=== PATIENT | female | born 1950 | race Caucasian/White ===

== ENCOUNTER 2019-05-30 13:17 | Inpatient (IN) | payer OTHER ==
[2019-05-29 23:00] VITALS: BP_SYST 109
[~2019-05-30] VITALS: Ht 160 cm; Wt 65.8 kg
[2019-05-30] MEDS ORDERED: NACL 0.9% 1,000 ML IV ONE (13:30)
[2019-05-30] MEDS ORDERED: ONDANSETRON HCL 4 MG/2 ML VIAL IVP ONE ×2 (13:30→13:45)
[2019-05-30] MEDS ORDERED: KETOROLAC TROMETHAMINE 30 MG VIAL IVP ONE (13:30)
[2019-05-30 13:33] VITALS: BP_SYST 161
[2019-05-30] MEDS ORDERED: LORazepam 2 MG/ML VIAL IVP ONE (13:45)
[2019-05-30] MEDS ORDERED: PANTOPRAZOLE SODIUM 40 MG/VIAL (PROTONIX) IVP ONE (13:45)
[2019-05-30 13:55] LABS: BASOPHILS % (AUTO) 0.1 % (0.0-2.0); LYMPHOCYTES # (AUTO) 1.1 K/uL (1.0-5.5); LYMPHOCYTES % (AUTO) 9.4 % (20.5-51.5); MEAN CORPUSCULAR HEMOGLOBIN 30 pg (27-31); MEAN CORPUSCULAR HGB CONC 34 % (32-36); MEAN CORPUSCULAR VOLUME 89 fL (79.0-98.0); MONOCYTES % (AUTO) 7.9 % (1.7-9.3); NEUTROPHILS % (AUTO) 82.6 % (40.0-70.0); PLATELET COUNT (AUTO) 307 K/uL (130-430); RED BLOOD CELL COUNT(AUTO) 4.29 MIL/uL (4.2-6.2); RED CELL DISTRIBUTION WIDTH 13.6 % (9.0-15.0); WHITE BLOOD COUNT (AUTO) 12.1 K/uL (4.8-10.8)
[2019-05-30 14:11] LABS: CALCIUM 9.3 mg/dL (8.4-11.0); CREATININE 2.57 mg/dL (0.55-1.30); POTASSIUM 3.5 mmol/L (3.5-5.1); TOTAL BILIRUBIN 0.7 mg/dL (0.0-1.0)
[2019-05-30 14:12] LABS: ALBUMIN 4.4 g/dL (3.4-4.8)
[2019-05-30] MEDS ORDERED: MORPHINE 2 MG/ML INJ. SYRINGE IVP ONE (14:45)
--- NOTE | 2019-05-30 15:10 | NUR ---
Patient to ER bed 6 to gown for evaluation. Side rails up.
--- NOTE | 2019-05-30 15:20 | NUR ---
Patient BIB Care/BLS for vomiting. Patient aresident of [facility], sent by Dr. Varner for nause and voming x3 days. Patient was seen at [facility] ER yesterday for nausea & vomiting, discharge with zofran & ABX. Patient continues to have nausea with vomiting and not tolerating PO intake. Daughter of patient at bedside states last PO intake was Thursday.
--- NOTE | 2019-05-30 15:25 | NUR ---
ER Dr. Rosales at bedside examining patient.
[2019-05-30] MEDS ORDERED: PANTOPRAZOLE SODIUM 40 MG/VIAL (PROTONIX) ONE (15:50)
--- NOTE | 2019-05-30 17:15 | NUR ---
# 14 FR In and Out catheter with use of sterile technique. Immediate return of 30 ml yellow urine noted. Urine sample collected and sent to lab. Pt tolerated procedure . Patient unable to toilet self.
[2019-05-30 17:22] LABS: BILIRUBIN,URINE 1+ (NEGATIVE); BLOOD, URINE 2+ (NEGATIVE); CLARITY/URINE SL CLOUDY (CLEAR); COLOR,URINE YELLOW (YELLOW); GLUCOSE,URINE 2+ (NEGATIVE); KETONES,URINE TRACE (NEGATIVE); LEUKOCYTE ESTERASE ,URINE NEGATIVE (NEGATIVE); NITRITE, URINE NEGATIVE (NEGATIVE); PH,URINE 5.5 (5.0-8.0); PROTEIN URINE 3+ (NEGATIVE); UROBILINOGEN,URINE 0.2 (0.2-1.0)
--- NOTE | 2019-05-30 17:45 | NUR ---
ER Dr. Rosales at bedside discussing results with patient & daughter of PT.
[2019-05-30 17:46] LABS: BACTERIA,URINE FEW /HPF (None Seen)
[2019-05-30 17:47] LABS: COARSE GRANULAR CASTS,URINE 0-10 /LPF (None Seen); FINE GRANULAR CASTS,URINE 0-10 /LPF (None Seen); MUCUS,URINE None Seen /LPF (None Seen); OTHER CASTS, URINE WBC CASTS 1+ /LPF (None Seen); URINE AMORPHOUS URATE 3+ /HPF (None Seen)
[2019-05-30] MEDS ORDERED: LEVOFLOXACIN 500 MG/D5W 100 ML IV ONE (18:00)
--- NOTE | 2019-05-30 18:11 | NUR ---
Dr. Rosales ordered abx and blood cx
--- NOTE | 2019-05-30 19:16 | NUR ---
Report recieved from TRISTAN Ramirez. States that med rec is currently unavail from staff at facility. Waiting for information to be provided Per TRISTAN Ramirez.
--- NOTE | 2019-05-30 19:16 | NUR ---
Report Given to Manolo HUDSON
[2019-05-30] MEDS ORDERED: NS 500 ML IV ONE (19:30)
--- NOTE | 2019-05-30 20:31 | NUR ---
Transfer to M/S via ACLS protocol. Licensed nurse present. IV present no signs or symptoms of infiltration.
--- NOTE | 2019-05-30 20:31 | NUR ---
Patient will be admitted to care of . Admitted to M/S unit. Will go to room 121C. Belongings list completed. Complete and up to date summary report printed. SBAR report to be given at bedside with opportunity for questions.
--- NOTE | 2019-05-30 21:17 | NUR ---
ADMISSION: The patient, JOHN JAMES, 69 y/o, F admitted by , was given written information regarding hospital policies, unit procedures and contact persons. Valuables were checked and pt was oriented to her room and surrounding.
--- NOTE | 2019-05-30 22:25 | NUR ---
Pt yelling and requesting pain medication for 9/10 abdominal pain. Pt also restless and attempting to get out of bed. Pt informed MD would be paged for pain medication order.
--- NOTE | 2019-05-30 22:28 | NUR ---
Paged Francesco Aguirre s/w Kamila
[2019-05-30] MEDS ORDERED: KCL 20 mEq in NS 1000 mL 1,000 ML IV ONE (22:30)
[2019-05-30 23:00] VITALS: BP_SYST 109
[2019-05-30] MEDS: ONDANSETRON HCL 4 MG/2 ML VIAL IVP PRN (23:32)
[2019-05-30] MEDS: MORPHINE 2 MG/ML INJ. SYRINGE IVP PRN (23:34)
--- NOTE | 2019-05-30 23:34 | NUR ---
Morphine 2mg and Zofran 4mg given IV for c/o abdominal pain and nausea respectively. IVF is infusing well in [facility]. Call light is with pt and bed alarm is on. Pt's room is across from the Nurses' Station.
[2019-05-30] MEDS: D5/0.45 NS 1,000 ML IV SCH (23:36)
[2019-05-31] MEDS ORDERED: GLUCOSE 15 GM GEL (in 37.5 GM TUBE) PO PRN
[2019-05-31] MEDS ORDERED: DEXTROSE 50% JECT 50 ML DISP.SYRIN IVP PRN
[2019-05-31] MEDS ORDERED: FLU VACC TS2019(65UP)/MF59C/PF 45 MCG/0.5 ML SYRINGE I.M. PRN (00:30)
[2019-05-31] MEDS: LORazepam 2 MG/ML VIAL IVP PRN ×3 (00:44→20:45)
--- NOTE | 2019-05-31 00:44 | NUR ---
Ativan 0.5mg was given IV for anxiety. Fall and safety precautions are in place.
--- NOTE | 2019-05-31 02:00 | NUR ---
Sleeping comfortably in bed. fall and safety precautions are in place. IVF is infusing well in [facility].
--- NOTE | 2019-05-31 02:49 | NUR ---
Consultation Paged Reason for the Consultation: Complicated UTI Was consult called: Y Person who was notified: Cat Consulting Physician: Dr. Johns Warp Tying Machine Tender Ordering Physician: Francesco Aguirre
--- NOTE | 2019-05-31 02:57 | NUR ---
Consultation Paged Reason for the Consultation: Abd Pain Was consult called: Y Person who was notified: Cat Consulting Physician: Dr. Michael (Dr. Brown is operations vice president) [employer] Teacher Ordering Physician: Francesco Aguirre
--- NOTE | 2019-05-31 02:59 | NUR ---
Consultation Paged Reason for the Consultation: Psych disorder Was consult called: Y Person who was notified: Cat Consulting Physician: Dr. Florence Hematologist Ordering Physician: Francesco Aguirre Face Sheet was faxed to [phone]
[2019-05-31] MEDS ORDERED: KCL 20 mEq in NS 1000 mL 1,000 ML IV ONE (03:57)
--- NOTE | 2019-05-31 04:00 | NUR ---
Not in any distress at this time. IVF is infusing well in [facility]. Call light is with pt and bed alarm is on.
[2019-05-31 06:30] LABS: ALBUMIN 3.8 g/dL (3.4-4.8); CALCIUM 8.4 mg/dL (8.4-11.0); CREATININE 2.06 mg/dL (0.55-1.30); TOTAL BILIRUBIN 0.5 mg/dL (0.0-1.0)
[2019-05-31] MEDS: INSULIN LISPRO SLIDING SCALE 100 UNITS/ML VIAL (humaLOG) SUBCUT PRN ×4 (06:35→21:20)
--- NOTE | 2019-05-31 06:35 | NUR ---
Accucheck 194 and 2 units Humalog Insulin was given SQ. Skin remains warm and dry to touch. IVF is infusing well in [facility]. All pt's needs were attended to. Will endorse to day shift nurse.
[2019-05-31 06:41] LABS: BASOPHILS % (AUTO) 0.1 % (0.0-2.0); HEMATOCRIT 35.5 % (36-48); LYMPHOCYTES # (AUTO) 1.3 K/uL (1.0-5.5); LYMPHOCYTES % (AUTO) 11.3 % (20.5-51.5); MEAN CORPUSCULAR HEMOGLOBIN 30 pg (27-31); MEAN CORPUSCULAR HGB CONC 34 % (32-36); MEAN CORPUSCULAR VOLUME 89 fL (79.0-98.0); MONOCYTES # (AUTO) 0.7 K/uL (0.0-1.0); MONOCYTES % (AUTO) 6.3 % (1.7-9.3); NEUTROPHILS # (AUTO) 9.5 K/uL (1.8-7.7); NEUTROPHILS % (AUTO) 82.3 % (40.0-70.0); PLATELET COUNT (AUTO) 272 K/uL (130-430); RED CELL DISTRIBUTION WIDTH 13.3 % (9.0-15.0); WHITE BLOOD COUNT (AUTO) 11.5 K/uL (4.8-10.8)
[2019-05-31 08:00] VITALS: BP_SYST 152
[2019-05-31 08:03] LABS: POTASSIUM 2.9 mmol/L (3.5-5.1)
[2019-05-31] MEDS: MORPHINE 2 MG/ML INJ. SYRINGE IVP PRN ×3 (08:21→23:20)
--- NOTE | 2019-05-31 08:28 | NUR ---
PAGED : DR SETHI SPOKE WITH SAEED FROM DR MARTINEZ. RE: LABS
[2019-05-31] MEDS: cefTRIAXone 1 GM in D5W 50 ML IV SCH (08:52)
[2019-05-31] MEDS: ONDANSETRON HCL 4 MG/2 ML VIAL IVP PRN ×2 (08:53→17:16)
[2019-05-31] MEDS ORDERED: POTASSIUM CHLORIDE 40 MEQ in NS 250 ML IV ONE ×2 (09:00→09:45)
[2019-05-31] MEDS ORDERED: PANTOPRAZOLE SODIUM 40 MG/VIAL (PROTONIX) IVP ONE (09:15)
[2019-05-31] MEDS: METOCLOPRAMIDE HCL 10 MG/2 ML VIAL IVP PRN (10:15)
--- NOTE | 2019-05-31 10:35 | NUR ---
Nutrition Update Frankie Scale 16 noted. Pt admitted for UTI. Diet: [facility] BMI: 25.6 kg/m2 RD to follow per nutrition care standards.
[2019-05-31] MEDS ORDERED: LORazepam 2 MG/ML VIAL IVP ONE (11:30)
[2019-05-31] MEDS ORDERED: LORazepam 2 MG/ML VIAL ONE (11:49)
[2019-05-31 12:03] VITALS: BP_SYST 155
--- NOTE | 2019-05-31 13:55 | NUR ---
Discharge Planning: [employer] placed call to pt's dtr-Magaly ([phone]). Magaly reports that pt was brought from [facility]; pt was admitted to [facility] on 05/27/2019. Pt had been at [facility] 04/26/19-05/27/2019. Pt's dtr states that she was unhappy with [facility] and pt will not be returning. Pt's dtr has researched facilities and would like pt to go to: 1. [facility] in [facility] 2. [facility]. Pt's dtr states that the pt "has been accepted" at both facilities. Pt's dtr states that the SNF placement will be for short term rehab; per dtr the plan is to bring pt home after SNF with 24 hour care. [employer] will remain available for support and will follow up as needed.
--- NOTE | 2019-05-31 14:39 | NUR ---
CALLED FOR FOLLOW UP ON PSYCH CONSULTATION WITH DR BALDERRAMA SPOKE WITH BRYCE FROM DR BALDERRAMA OFFICE .FACE SHEET WAS FAXED.
[2019-05-31] MEDS ORDERED: ONDA4TAB5 PO (15:01)
[2019-05-31] MEDS ORDERED: DONE10TA44 PO (15:01)
[2019-05-31] MEDS ORDERED: METO25TA6 PO (15:01)
[2019-05-31] MEDS ORDERED: HYDR50TA3 PO (15:01)
[2019-05-31] MEDS ORDERED: GLU500 PO (15:01)
[2019-05-31] MEDS ORDERED: LOSA100T3 PO (15:01)
[2019-05-31] MEDS ORDERED: PRO40 PO (15:01)
[2019-05-31] MEDS ORDERED: LORA-259 PO (15:32)
[2019-05-31] MEDS ORDERED: QUET50TA PO ×2 (15:32)
[2019-05-31] MEDS ORDERED: ACCUCHECK (15:32)
[2019-05-31] MEDS ORDERED: GLUCOSE GEL PO (15:32)
[2019-05-31] MEDS ORDERED: ZOLP5TAB2 PO (15:32)
[2019-05-31] MEDS ORDERED: [UNRECOGNIZED DRUG - OTHER] SUBCUT (15:32)
[2019-05-31 16:12] VITALS: BP_SYST 133
[2019-05-31 16:14] VITALS: BP_SYST 144
[2019-05-31] MEDS: D5/0.45 NS 1,000 ML IV SCH (17:05)
--- NOTE | 2019-05-31 19:54 | NUR ---
ADULT PROTECTIVE SERVICES ELVIE FROM ADULT PROTECTIVE SERVICES CAME TO EVALUATE THE PATIENT. BRENDEN STATED THAT THE DAUGHTER OF THE PATIENT OR THE FAMILY IS UNABLE TO HAVE THE PATIENT SIGN ANY FORMS FOR POWER OF GERMAN TUTOR BECAUSE THE PATIENT IS CURRENTLY IMPAIRED AN UNABLE TO MAKE DECISIONS. ELVIE FURTHER STATES THAT ANY STAFF WITNESSING THE FAMILY SIGNING SUCH PAPERWORK NEEDS TO LET THE FAMILY KNOW TO HOLD OFF AND CONTACT THEIR ADMINISTRATIVE DIRECTORS. ELVIE ALSO STATES THAT THERE NEEDS TO BE A NOTE FROM A PHYSICIAN THAT STATES THAT THE PATIENT CAN NO LONGER MANAGE THE PATIENT'S OWN FINANCES PRIOR TO THE FAMILY BEING ABLE TO MAKE ANY DECISIONS REGARDING POWER OF GERMAN TUTOR.
[2019-05-31] MEDS: QUEtiapine FUMARATE 100 MG TABLET PO SCH (20:52)
[2019-05-31] MEDS: PANTOPRAZOLE SODIUM 40 MG/VIAL (PROTONIX) IVP SCH (21:07)
[2019-06-01 01:34] VITALS: BP_SYST 185
[2019-06-01] MEDS: D5/0.45 NS 1,000 ML IV SCH ×2 (04:06→10:51)
[2019-06-01] MEDS: MORPHINE 2 MG/ML INJ. SYRINGE IVP PRN (04:32)
[2019-06-01] MEDS: INSULIN LISPRO SLIDING SCALE 100 UNITS/ML VIAL (humaLOG) SUBCUT PRN ×4 (06:00→20:50)
--- NOTE | 2019-06-01 06:00 | NUR ---
recieved report @ start of shift, alert with confusion, respirations even and unlabored, room air,[place] Islander speaking,with some Lao, npo, scheduled for egd this am consent signed ,adult services @ bedside and spoke with patient and daughter over the phone,medicated with morphine times 2 for c/o abdominal pain during the shift, tolerated ativan i mg ivp for increased anxiety with restlessness, effective results obtained, will continue to monitor for any s/s of distress, # 22g reinserted in left hand after saline lock dislodged in RAC.
[2019-06-01 06:13] LABS: BASOPHILS % (AUTO) 0.1 % (0.0-2.0); HEMATOCRIT 40.1 % (36-48); HEMOGLOBIN 13.5 g/dL (12.0-16.0); LYMPHOCYTES # (AUTO) 1.1 K/uL (1.0-5.5); LYMPHOCYTES % (AUTO) 10.4 % (20.5-51.5); MEAN CORPUSCULAR HEMOGLOBIN 30 pg (27-31); MEAN CORPUSCULAR HGB CONC 34 % (32-36); MEAN CORPUSCULAR VOLUME 89 fL (79.0-98.0); MONOCYTES # (AUTO) 0.9 K/uL (0.0-1.0); MONOCYTES % (AUTO) 8.3 % (1.7-9.3); NEUTROPHILS # (AUTO) 8.7 K/uL (1.8-7.7); NEUTROPHILS % (AUTO) 81.2 % (40.0-70.0); PLATELET COUNT (AUTO) 289 K/uL (130-430); RED BLOOD CELL COUNT(AUTO) 4.49 MIL/uL (4.2-6.2); RED CELL DISTRIBUTION WIDTH 13.2 % (9.0-15.0); WHITE BLOOD COUNT (AUTO) 10.7 K/uL (4.8-10.8)
[2019-06-01 06:25] LABS: ALBUMIN 4.2 g/dL (3.4-4.8); CALCIUM 8.6 mg/dL (8.4-11.0); CREATININE 0.96 mg/dL (0.55-1.30); TOTAL BILIRUBIN 0.7 mg/dL (0.0-1.0)
--- NOTE | 2019-06-01 06:56 | NUR ---
adult services child protective services social worker(Sandor)also explained to keno writer its ok for any healthcare situations for the daughter to be called since she is the next of kin, otherwise all financial business and approvals must come from their office.
[2019-06-01 07:22] LABS: POTASSIUM 2.8 mmol/L (3.5-5.1)
--- NOTE | 2019-06-01 07:30 | NUR ---
Opening note patient resting in bed at this time, no complaints of pain. Iv patent, intact, and infusing fluids as ordered. no adverse side effects. On safety and aspiration precautions, HOB kept elevated, 3 side rails up, call light within reach. patient in stable condition. Will continue to monitor.
[2019-06-01 08:00] VITALS: BP_SYST 170
[2019-06-01] MEDS: MEPERIDINE HCL/PF 100 MG/ML AMP ONE ×3 (08:04→09:36)
[2019-06-01] MEDS: MIDAZOLAM HCL 5 MG/5 ML VIAL ONE ×4 (08:04→09:38)
--- NOTE | 2019-06-01 08:35 | NUR ---
EGD patient kept NPO. IV patent, intact,and infusing fluids as ordered. No adverse side effects. Patient left for EGD via wheelchair in stable condition.
[2019-06-01] MEDS: KCL 20 mEq in 100 mL (PREMIX) 100 ML IV SCH ×2 (08:45→10:44)
[2019-06-01] MEDS: PANTOPRAZOLE SODIUM 40 MG/VIAL (PROTONIX) IVP SCH ×2 (08:46→20:44)
[2019-06-01] MEDS: hydrALAZINE HCL 20 MG/ML VIAL IVP PRN (08:47)
[2019-06-01] MEDS: ONDANSETRON HCL 4 MG/2 ML VIAL IVP PRN ×2 (08:47→20:42)
[2019-06-01] MEDS: cefTRIAXone 1 GM in D5W 50 ML IV SCH (08:59)
[2019-06-01] MEDS ORDERED: PANTOPRAZOLE SODIUM 40 MG TAB PO SCH (09:00)
[2019-06-01] MEDS ORDERED: cloNIDine HCL 0.2 MG/24 HR PATCH.TDWK TD SCH (09:00)
[2019-06-01] MEDS ORDERED: SIMETHICONE 40 MG/0.6 ML ML ONE (09:26)
--- NOTE | 2019-06-01 10:30 | NUR ---
patient returns Patient returned from EGD in stable condition. All morning medications given as ordered. No adverse side effects.
[2019-06-01] MEDS: QUEtiapine FUMARATE 25 MG TABLET PO SCH ×2 (10:38→17:14)
[2019-06-01] MEDS: LORazepam 2 MG/ML VIAL IVP PRN (10:38)
[2019-06-01] MEDS: METOCLOPRAMIDE HCL 10 MG/2 ML VIAL IVP PRN ×2 (10:43→17:14)
[2019-06-01 12:39] VITALS: BP_SYST 104
--- NOTE | 2019-06-01 12:45 | NUR ---
lunch patient refusing to eat lunch, noted with poor appetite. Will offer snacks and attempt at a later time.
--- NOTE | 2019-06-01 14:30 | NUR ---
Rounds patient ambulated to the restroom and back to bed with steady gait. No other needs at this time.
[2019-06-01 16:10] VITALS: BP_SYST 131
--- NOTE | 2019-06-01 16:45 | NUR ---
rounds patient resting in bed at this time, no complaints of pain. Iv patent, intact, and infusing fluids as ordered. no adverse side effects. no infiltration.
--- NOTE | 2019-06-01 18:37 | NUR ---
closing note patient resting in bed at this time, no complaints of pain. Iv patent, intact, and infusing fluids as ordered. no adverse side effects. On safety and aspiration precautions, HOB kept elevated, 3 side rails up, call light within reach. patient in stable condition. All needs met.
--- NOTE | 2019-06-01 19:30 | NUR ---
OPENING NOTE Patient resting in bed at this time, no complaints of pain. Iv patent, intact, and infusing fluids as ordered. no adverse side effects. On safety and aspiration precautions, HOB kept elevated, 3 side rails up, call light within reach. patient in stable condition at this time. Will continue to monitor.
[2019-06-01 20:00] VITALS: BP_SYST 138
[2019-06-01] MEDS: QUEtiapine FUMARATE 100 MG TABLET PO SCH (20:44)
--- NOTE | 2019-06-01 20:50 | NUR ---
MEDICATION PASS SCHEDULED MEDICATIONS ADMINISTERED ORDERED. BLOOD SUGAR OF 224, 4 UNITS OF HUMALOG INSULIN ADMINISTERED PER SLIDING SCALE. PT REPORTING NAUSEA, ZOFRAN 4 MG IVP ADMINISTERED ORDERED PRN. SAFETY AND ASPIRATION PRECAUTIONS ARE IN PLACE. WILL CONT TO MONITOR.
--- NOTE | 2019-06-01 22:45 | NUR ---
REPOSITIONED PT REPOSITIONED IN BED WITH ASSISTANCE FROM ADDIS KILLIAN.
--- NOTE | 2019-06-02 00:25 | NUR ---
RESTING PT RESTING IN BED, NO S/S OF ACUTE DISTRESS, BREATHING IS UNLABORED TO ROOM AIR. NO SIGN OF PAIN. SAFETY MAINTAINED. WILL MONITOR.
[2019-06-02] MEDS: ONDANSETRON HCL 4 MG/2 ML VIAL IVP PRN (00:45)
[2019-06-02 00:47] VITALS: BP_SYST 147
[2019-06-02] MEDS: METOCLOPRAMIDE HCL 10 MG/2 ML VIAL IVP PRN (03:22)
[2019-06-02] MEDS: MORPHINE 2 MG/ML INJ. SYRINGE IVP PRN (03:23)
--- NOTE | 2019-06-02 03:23 | NUR ---
REGLAN/MORPHINE PT GIVEN MORPHINE FOR SEVERE GENERALIZED PAIN ORDERED PRN. PT ALSO GIVEN REGLAN FOR REPORT OF NAUSEA ORDERED PRN. NO S/S OF DISTRESS. SAFETY MAINTAINED. WILL MONITOR.
--- NOTE | 2019-06-02 06:02 | NUR ---
ACCUCHECK BLOOD SUGAR OF 219, 4 UNITS OF HUMALOG ADMINISTERED PER SLIDING SCALE.
[2019-06-02] MEDS: INSULIN LISPRO SLIDING SCALE 100 UNITS/ML VIAL (humaLOG) SUBCUT PRN ×3 (06:03→21:42)
--- NOTE | 2019-06-02 06:33 | NUR ---
CLOSING NOTE Patient resting in bed at this time, no complaints of pain. Iv patent and intact. no adverse side effects. On safety and aspiration precautions, HOB kept elevated, 3 side rails up, call light within reach. patient in stable condition at this time. Will endorse patient care to day shift RN.
[2019-06-02 06:54] LABS: BASOPHILS % (AUTO) 0.3 % (0.0-2.0); EOSINOPHILS % (AUTO) 0.1 % (0.0-4.0); HEMATOCRIT 37.2 % (36-48); HEMOGLOBIN 12.7 g/dL (12.0-16.0); LYMPHOCYTES # (AUTO) 1.1 K/uL (1.0-5.5); LYMPHOCYTES % (AUTO) 13.1 % (20.5-51.5); MEAN CORPUSCULAR HEMOGLOBIN 30 pg (27-31); MEAN CORPUSCULAR HGB CONC 34 % (32-36); MEAN CORPUSCULAR VOLUME 89 fL (79.0-98.0); MONOCYTES # (AUTO) 0.9 K/uL (0.0-1.0); MONOCYTES % (AUTO) 11.6 % (1.7-9.3); NEUTROPHILS # (AUTO) 6.1 K/uL (1.8-7.7); NEUTROPHILS % (AUTO) 74.9 % (40.0-70.0); PLATELET COUNT (AUTO) 251 K/uL (130-430); RED CELL DISTRIBUTION WIDTH 13.4 % (9.0-15.0); WHITE BLOOD COUNT (AUTO) 8.1 K/uL (4.8-10.8)
[2019-06-02 06:55] LABS: ALBUMIN 3.5 g/dL (3.4-4.8); BILIRUBIN,DIRECT 0.1 mg/dL (0.0-0.3); CREATININE 1.04 mg/dL (0.55-1.30); TOTAL BILIRUBIN 0.6 mg/dL (0.0-1.0)
[2019-06-02 07:05] LABS: POTASSIUM 2.8 mmol/L (3.5-5.1)
[2019-06-02] MEDS ORDERED: POTASSIUM CHLORIDE 40 MEQ in NS 250 ML IV ONE (07:30)
--- NOTE | 2019-06-02 07:32 | NUR ---
RN OPENING NOTE/ SPOKE WITH DR. LORENZO INFORMED OF POTASSIUM LEVEL ORDERS WERE RECEIVED. REPORT WAS ENDORSED BY NIGHT NURSE. PATIENT APPEARS TO BE RESTING NO SIGNS OF ANY DISTRESS, BREATHING IS EQUAL AND NON LABORED. PATIENT IS CLOSE TO NURSES STATION. PATIENT HAS ALL SAFETY PRECAUTIONS IN PLACE. WILL CONTINUE TO MONITOR.
--- NOTE | 2019-06-02 08:00 | NUR ---
MEDICATION PATIENTS SCHEDULED MEDICATION GIVEN ORDERED. PATIENT IS AWAKE AND ALERT, NO COMPLAINTS OF NAUSEA OR PAIN AT THIS TIME. PATIENT EDUCATED GAME BIRD FARMER LIGHT FOR ASSISTANCE. CALL LIGHT IS WITH PATIENT. PATIENT HAS NO OTHER NEEDS AT THIS TIME. CLOSE TO NURSES STATION.
[2019-06-02] MEDS: cefTRIAXone 1 GM in D5W 50 ML IV SCH (08:02)
[2019-06-02] MEDS: PANTOPRAZOLE SODIUM 40 MG/VIAL (PROTONIX) IVP SCH ×2 (08:03→21:30)
[2019-06-02] MEDS: QUEtiapine FUMARATE 25 MG TABLET PO SCH ×2 (08:19→18:08)
[2019-06-02 08:31] VITALS: BP_SYST 95
--- NOTE | 2019-06-02 10:00 | NUR ---
PATIENT BETZAIDASUMEETROSATROY CALLED SPOKE WITH PATIENTS DAUGHTER, INFORMED OF UPDATES GI SEEN PATIENT TODAY,PATIENT HAS NO COMPLAINTS OF NAUSEA OR PAIN .PATIENT APPEARS TO BE RESTING. BREATHING IS EQUAL AND NON LABORED. PATIENT HAS ALL SAFETY PRECAUTIONS IN PLACE. CALL LIGHT IS WITH HER,PATIENT IS CLOSE TO NURSES STATION. WILL CONTINUE TO MONITOR.
[2019-06-02 12:00] VITALS: BP_SYST 111
--- NOTE | 2019-06-02 12:04 | NUR ---
ACCU CHECK Addendum: 06/02/19 at 1242 by Sarah Alba RN Accu check done, coverage given as ordered. patient is awake and alert laying in bed. no signs of any distress, breathing is equal and non labored. patient has all safety precautions in place. patient is close to nurses station. no complaints of pain or nausea at this time. will continue to monitor.
--- NOTE | 2019-06-02 14:30 | NUR ---
RN ROUNDING PATIENT APPEARS TO BE RESTING, BREATHING IS EQUAL AND NON LABORED. PATIENT HAS ALL SAFETY PRECAUTIONS IN PLACE. PATIENT HAS NO OTHER NEEDS AT THIS TIME. PATIENT IS CLOSE TO NURSE STATION. NO OTHER NEEDS AT THIS TIME. WILL CONTINUE TO MONITOR.
--- NOTE | 2019-06-02 15:49 | NUR ---
Dietitian Recommendations * Recommend soft (low fiber/bland) diet w/ Ensure Enlive BID (ONS provides 700 kcal/day, 40 gm protein/day) LISBET, RD Please refer to Nutrition Assessment for details. Addendum: 06/02/19 at [address] Amended: Links added.
--- NOTE | 2019-06-02 16:00 | NUR ---
RN ROUNDING PATIENT IS APPEARS TO BE RESTING NO SIGNS OF ANY DISTRESS, BREATHING IS EQUAL AND NON LABORED. PATIENT HAS ALL SAFETY PRECAUTIONS IN PLACE. CALL LIGHT IS WITH HER. PATIENT IS CLOSE TO NURSES STATION. PATIENT HAS NO OTHER NEEDS AT THIS TIME.
[2019-06-02 16:29] VITALS: BP_SYST 100
--- NOTE | 2019-06-02 18:09 | NUR ---
rn closing note/ accu check patient is awake and alert, accu check done,no coverage needed. patient's scheduled medication given per order. patient is eating dinner at bedside. patient has no complaints of any pain , no nausea. patient has all safety precautions in place. call light is with her.educated to use for assistance. patient is close to nurses station. no other needs at this time.
--- NOTE | 2019-06-02 19:30 | NUR ---
OPENING NOTE Received patient awake, resting in bed, no s/sx of distress. Nonlabored breathing on room air. Presently denies nausea or pain. IV is SL to left wrist and right wrist. Bed is locked in lowest position, side rails up 3x, bed alarm on and call light w/in reach. Daughter is visiting and talking with patient. Updated board and reviewed plan of care.
[2019-06-02 20:00] VITALS: BP_SYST 116
[2019-06-02] MEDS: QUEtiapine FUMARATE 100 MG TABLET PO SCH (21:32)
--- NOTE | 2019-06-02 21:39 | NUR ---
Medications Due medications given. Fingerstick blood glucose level is 238 and administered 4 units insulin as ordered per sliding scale.
--- NOTE | 2019-06-02 23:42 | NUR ---
Low blood pressure Patient B/P 87/42, paged Dr. Fede Varner, awaiting call back.
[2019-06-03] VITALS (7 sets, daily range): BP systolic 87–145
--- NOTE | 2019-06-03 00:09 | NUR ---
2nd page Dr. Varner [phone], s/w Kamila
--- NOTE | 2019-06-03 00:30 | NUR ---
Reassess B/P Dr. Varner has not called back. Reassessed B/P it is 102/54, HR 96. Patient denies dizziness, weakness.
--- NOTE | 2019-06-03 02:12 | NUR ---
RN rounds Patient is resting w/ eyes closed. Nonlabored breathing. Safety precautions in place and call light w/ in reach. Direct observer / nurse medical record assistant, in room at all times (D.O. is for another patient, yet available to assist this patient).
--- NOTE | 2019-06-03 04:06 | NUR ---
RN rounds Resting w/ eyes closed. Symmetrical rise and fall of chest, nonlabored breathing. Safety precautions maintained and call light w/in reach.
--- NOTE | 2019-06-03 05:05 | NUR ---
V/S Presently patient denies pain (abdominal pain) or nausea. V/S taken: B/P 104/54 HR 85. Will continue to monitor.
--- NOTE | 2019-06-03 06:02 | NUR ---
f/u on Psych consult f/u call on Psych consult was called. [phone] s/w Traci
[2019-06-03 06:12] LABS: ALANINE AMINOTRANSFERASE 56 U/L (12-78); ALBUMIN 2.9 g/dL (3.4-4.8); ANION GAP 6 (5-15); ASPARTATE AMINOTRANSFERASE 34 U/L (10-37); CALCIUM 7.7 mg/dL (8.4-11.0); CHLORIDE 89 mmol/L (98-107); CREATININE 1.81 mg/dL (0.55-1.30); GLUCOSE 162 mg/dL (70-99); POTASSIUM 3.4 mmol/L (3.5-5.1); SODIUM SERUM 125 mmol/L (136-145); TOTAL BILIRUBIN 0.3 mg/dL (0.0-1.0); UREA NITROGEN, BLOOD 30 mg/dL (8-21)
[2019-06-03 06:36] LABS: GFR AFRICAN AMERICAN 36 mL/min (>90)
[2019-06-03 06:37] LABS: BILIRUBIN,DIRECT < 0.1 mg/dL (0.0-0.3)
[2019-06-03] MEDS: INSULIN LISPRO SLIDING SCALE 100 UNITS/ML VIAL (humaLOG) SUBCUT PRN ×4 (06:42→20:40)
[2019-06-03 07:06] LABS: HEPATITIS B CORE AB, TOTAL Negative (Negative); HEPATITIS B SURFACE AG Negative (Negative); HEPATITIS C VIRUS AB <0.1 s/co ratio (0.0-0.9)
--- NOTE | 2019-06-03 07:13 | NUR ---
CLOSING NOTE Patient resting in comfortable position. Presently denies abdominal pain or nausea. Fingerstick BGT done w/ result of 162 mg/dL and administered insulin per sliding scale order. Safety precautions maintained. Patient agreed to flu vaccine administration and it was given. She was given information, side effects and verbalized understanding. Needs met throughout shift, will endorse care to incoming day shift nurse.
--- NOTE | 2019-06-03 07:30 | NUR ---
opening note patient is resting in bed, no signs of distress at this time, patient able to state name and to me, educated concrete batch plant operator light system and plan of care, patient said "okay" to me, no other needs addressed at this time, brake armed, bed in lowest position, two side rails up, bed alarm on, room close to station, fall/safety precautions in place.
[2019-06-03] MEDS: QUEtiapine FUMARATE 25 MG TABLET PO SCH ×2 (08:29→17:05)
[2019-06-03] MEDS: PANTOPRAZOLE SODIUM 40 MG/VIAL (PROTONIX) IVP SCH ×2 (08:29→20:19)
--- NOTE | 2019-06-03 10:25 | NUR ---
rounds patient is resting in bed, eyes closed breathing easy and nonlabored, no signs of distress at this time, no needs addressed at this time, fall/safety precautions in place.
[2019-06-03] MEDS ORDERED: DICYCLOMINE HCL 10 MG CAPSULE PO ONE (11:15)
--- NOTE | 2019-06-03 12:13 | NUR ---
patient resting in bed eyes closed breathing easy and nonlabored, no signs of distress, no needs addressed at this time, fall/safety precautions in place.
[2019-06-03] MEDS: NACL 0.9% 1,000 ML IV SCH (13:45)
[2019-06-03] MEDS ORDERED: POTASSIUM CHLORIDE 40 MEQ in NS 250 ML IV ONE (14:00)
--- NOTE | 2019-06-03 14:55 | NUR ---
[place] patient resting in bed, educated on medication use and side effects, patient verbalized understanding, tolerating well, no signs of distress at this time, no needs addressed at this time, fall/safety precautions in place.
--- NOTE | 2019-06-03 16:33 | NUR ---
rounds patient resting in bed, watching tv, k rider was burning patient's left IV site, change to the other right IV site and placed ice pack on left hand.
--- NOTE | 2019-06-03 18:43 | NUR ---
closing note patient is resting in bed, no signs of distress at this time, IVF running and patient tolerating well, no other needs addressed at this time, brake armed, bed in lowest position, two side rails up, bed alarm on, room close to station, fall/safety precautions in place, Dr Varner saw patient, will endorse report to [facility] shift nurse to continue with care. Addendum: 06/03/19 at 1844 by Adriana Badillo RN Dr Florence did see patient this morning.
--- NOTE | 2019-06-03 19:25 | NUR ---
CHANGE OF SHIFT; pt. awake, alert, resting in bed watching tv.no complaints noted. instructed to use call light if help needed. bed alarm on, fall risk precautions. pt. room close to nurses station.
[2019-06-03] MEDS: QUEtiapine FUMARATE 100 MG TABLET PO SCH (20:19)
[2019-06-03] MEDS: DICYCLOMINE HCL 10 MG CAPSULE PO SCH (20:26)
--- NOTE | 2019-06-03 20:30 | NUR ---
NOTES: pt. very sleepy, awakened for VS and due medications. KCL rider completed. pt. daughter at bedside. pt. needs attended. IV via rt. wrist area, NS @ 100 cc/hr. denies any discomfort at this time. on fall risk precautions.
--- NOTE | 2019-06-03 21:00 | NUR ---
NOTES: BS checked 214 with sliding scale coverage. able to turn and repositioned self.
--- NOTE | 2019-06-03 23:02 | NUR ---
NOTES: pt. called, c/o headache 12/18, no prn medication, informed pt. will call MD. SHELBY continuous.
--- NOTE | 2019-06-03 23:40 | NUR ---
NOTES: called again exchange of Dr. Varner by nurse Juan Alberto. pt. informed still waiting for MD to call back for pain medication.
[2019-06-04 00:29] VITALS: BP_SYST 110
[2019-06-04] MEDS: NACL 0.9% 1,000 ML IV SCH ×3 (00:34→22:08)
--- NOTE | 2019-06-04 00:46 | NUR ---
NOTES: pt. called and assisted to the restroom, ambulated. made her aware MD has not called back, offered ice pack for her headache but she does not want it since its cold. back to bed and kept warm.
--- NOTE | 2019-06-04 01:00 | NUR ---
NOTES: pt. dangled at bedside and ate her muffin. pt. needs attended.
--- NOTE | 2019-06-04 01:46 | NUR ---
NOTES: pt. still wants medication for her headache. informed pt. will call MD again.
--- NOTE | 2019-06-04 01:54 | NUR ---
NOTES: finally got hold of Dr. Varner and got an order for Tylenol prn. wiil verify with pharmacist.
[2019-06-04] MEDS ORDERED: ACETAMINOPHEN 500 MG TABLET PO PRN (02:00)
--- NOTE | 2019-06-04 02:19 | NUR ---
NOTES: was about to give Tylenol, pt. saying she does not have headache anymore, she was just hungry, still eating her muffin at this time.
--- NOTE | 2019-06-04 03:00 | NUR ---
NOTES: pt. up to the restroom and stand by. IV site leaking, came out, restarted another IV site on rt. hand with gauge #24 and resume IVF.
--- NOTE | 2019-06-04 04:53 | NUR ---
NOTES: pt. sleeping when checked. condition unchanged.
--- NOTE | 2019-06-04 05:36 | NUR ---
NOTES: am blood draw done, kept light on at this time, pretty awake. pt. needs attended.
[2019-06-04 06:10] LABS: BASOPHILS % (AUTO) 0.6 % (0.0-2.0); EOSINOPHILS # (AUTO) 0.2 K/uL (0.0-0.4); EOSINOPHILS % (AUTO) 2.9 % (0.0-4.0); HEMATOCRIT 30.2 % (36-48); HEMOGLOBIN 10.2 g/dL (12.0-16.0); LYMPHOCYTES # (AUTO) 1.3 K/uL (1.0-5.5); LYMPHOCYTES % (AUTO) 22.7 % (20.5-51.5); MEAN CORPUSCULAR HEMOGLOBIN 30 pg (27-31); MEAN CORPUSCULAR HGB CONC 34 % (32-36); MEAN CORPUSCULAR VOLUME 90 fL (79.0-98.0); MONOCYTES # (AUTO) 0.9 K/uL (0.0-1.0); MONOCYTES % (AUTO) 15.5 % (1.7-9.3); NEUTROPHILS # (AUTO) 3.3 K/uL (1.8-7.7); NEUTROPHILS % (AUTO) 58.3 % (40.0-70.0); PLATELET COUNT (AUTO) 202 K/uL (130-430); RED BLOOD CELL COUNT(AUTO) 3.34 MIL/uL (4.2-6.2); RED CELL DISTRIBUTION WIDTH 13.6 % (9.0-15.0); WHITE BLOOD COUNT (AUTO) 5.6 K/uL (4.8-10.8)
[2019-06-04 06:15] LABS: ALBUMIN 2.8 g/dL (3.4-4.8); CALCIUM 7.2 mg/dL (8.4-11.0); CREATININE 1.15 mg/dL (0.55-1.30); POTASSIUM 4.3 mmol/L (3.5-5.1); TOTAL BILIRUBIN 0.2 mg/dL (0.0-1.0)
[2019-06-04] MEDS: INSULIN LISPRO SLIDING SCALE 100 UNITS/ML VIAL (humaLOG) SUBCUT PRN ×4 (06:19→22:15)
--- NOTE | 2019-06-04 06:53 | NUR ---
CLOSING NOTES; pt. condition unchanged. still with occ. bouts of productive cough. IVF patent, continuous IV of NS @ b100 cc/hr, secured with gauze wrapped around her hand, removed rt. IV site, pt. hurting. BS checked 159 with sliding scale coverage. for further care and assist. will endorse to day shift for continuity of care.
--- NOTE | 2019-06-04 07:28 | NUR ---
OPENING NOTE Patient resting in the bed. No acute distress. Denied of pain. Skin warm and dry to touch. IV intact to right hand, no redness, no swelling, no drainage. On NS at 100ml/hr, infusing well. Discussed the safety issue, use call light when needs help, and plan of care, verbally understanding. Safety measure maintained. Bed locked in low position, side rails up, bed alarm on. Call light within reached. Will continue to monitor.
[2019-06-04 07:50] VITALS: BP_SYST 148
[2019-06-04] MEDS: DICYCLOMINE HCL 10 MG CAPSULE PO SCH ×2 (09:12→21:45)
[2019-06-04] MEDS: PANTOPRAZOLE SODIUM 40 MG/VIAL (PROTONIX) IVP SCH ×2 (09:12→21:45)
[2019-06-04] MEDS: QUEtiapine FUMARATE 25 MG TABLET PO SCH ×2 (09:12→17:49)
--- NOTE | 2019-06-04 09:20 | NUR ---
AM SCHEDULE MED GIVEN, TOLERATED WELL.
--- NOTE | 2019-06-04 10:18 | NUR ---
SEEN AND EXAMINED BY JOSEPH GILL.
--- NOTE | 2019-06-04 11:38 | NUR ---
DR=207 Humalog insulin 4 units given per sliding scale as ordered. Patient no acute distress, resting in the bed. Safety measure maintained. Call light within reached. Bed locked in low position, side rails up, bed alarm on. Continue to monitor.
--- NOTE | 2019-06-04 11:45 | NUR ---
SEEN AND EXAMINED BY DR[facility].
[2019-06-04 12:12] LABS: ANTI NUCLEAR AB WITH REFLEX Negative (Negative)
[2019-06-04 12:25] VITALS: BP_SYST 142
--- NOTE | 2019-06-04 13:20 | NUR ---
BATHROOM Assisted patient to bathroom. No acute distress. Void freely without difficult. Assisted back to bed. Safety measure maintained. Call light within reached. Bed locked in low position, side rails up, bed alarm on. Continue to monitor.
--- NOTE | 2019-06-04 16:09 | NUR ---
ROUND Patient resting in the bed and watching TV. No acute distress. IV intact, IVF infusing well. Safety measure maintained. Bed locked in low position, side rails up, bed alarm on. Call light within reached. Continue to monitor.
[2019-06-04 16:31] VITALS: BP_SYST 157
[2019-06-04 16:45] VITALS: BP_SYST 148
--- NOTE | 2019-06-04 18:45 | NUR ---
CLOSING NOTE Patient resting in the bed. No acute distress. Denied of pain. Skin warm and dry to touch. IV intact to right hand, no redness, no swelling, no drainage. On NS at 100ml/hr, infusing well. All needs met. Assisted to bathroom during shift. Safety measure maintained. Bed locked in low position, side rails up, bed alarm on. Call light within reached. Will endorse to night nurse.
[2019-06-04 19:35] VITALS: BP_SYST 146
--- NOTE | 2019-06-04 19:35 | NUR ---
INITIAL NOTES PATIENT IS LAYING IN BED AND STABLE. NO S/S OF RESPIRATORY DISTRESS NOTED. CALL LIGHT IN REACH. BED IS LOCKED, ALARMED, AND AT THE LOWEST POSITION. PLAN OF CARE IS DISCUSSED WITH PATIENT AT THIS TIME. PATIENT UNSUCCESSFULLY DEMONSTRATES USAGE OF CALL LIGHT AT THIS TIME. WILL CONTINUE TO EDUCATE AND MONITOR. FALL, SAFETY, ASPIRATION, AND RESPIRATORY PRECAUTIONS WILL BE IN PLACE THROUGHOUT THE SHIFT. PATIENT VERBALIZES NO PAIN AT THIS TIME.
--- NOTE | 2019-06-04 21:35 | NUR ---
ROUNDING PATIENT IS SLEEPING. PATIENT IS STABLE. NO S/S OF RESPIRATORY DISTRESS NOTED. CALL LIGHT IN REACH. BED IS LOCKED AND AT THE LOWEST POSITION. WILL CONTINUE TO MONITOR.
[2019-06-04] MEDS: QUEtiapine FUMARATE 100 MG TABLET PO SCH (21:45)
--- NOTE | 2019-06-04 23:35 | NUR ---
ROUNDING PATIENT IS SITTING ON THE SIDE OF THE BED. PATIENT WAS REORIENTED TO LOCATION AND WAS SAT BACK INSIDE OF THE BED. PATIENT IS REPOSITION FOR COMFORT. PATIENT IS STABLE. NO S/S OF RESPIRATORY DISTRESS. CALL LIGHT IN REACH. BED IS LOCKED, ALARMED, AND AT THE LOWEST POSITION. WILL CONTINUE TO MONITOR.
[2019-06-05] MEDS: hydrALAZINE HCL 20 MG/ML VIAL IVP PRN (00:05)
[2019-06-05 00:16] VITALS: BP_SYST 158
--- NOTE | 2019-06-05 01:35 | NUR ---
ROUNDING PATIENT WENT TO THE RESTROOM AT THIS TIME. PATIENT WAS REPOSITION BACK INTO BED FOR COMFORT. PATIENT TOLERATED WELL. PATIENT IS STABLE. NO S/S OF RESPIRATORY DISTRESS NOTED. CALL LIGHT IN REACH. BED IS LOCKED AND AT THE LOWEST POSITION. WILL CONTINUE TO MONITOR.
--- NOTE | 2019-06-05 05:46 | NUR ---
ROUNDING PATIENT IS SLEEPING IN BED AND STABLE. NO S/S OF RESPIRATORY DISTRESS NOTED. CALL LIGHT IN REACH. BED IS LOCKED, ALARMED, AND AT THE LOWEST POSITION. WILL CONTINUE TO MONITOR UNTIL REPORT IS GIVEN TO AM NURSE BY BEDSIDE.
[2019-06-05] MEDS: NACL 0.9% 1,000 ML IV SCH (06:10)
--- NOTE | 2019-06-05 06:18 | NUR ---
CLOSING NOTE PATIENT IS STABLE AND LAYING IN BED. BED IS LOCKED, ALARMED AND AT THE LOWEST POSITION. CALL LIGHT IN REACH. FALL, SAFETY, ASPIRATION, AND RESPIRATORY PRECAUTIONS HAS BEEN IN PLACE THROUGHOUT THE SHIFT. WILL CONTINUE TO MONITOR UNTIL SHIFT REPORT IS GIVEN TO AM NURSE BY BEDSIDE. Addendum: 06/05/19 at 0621 by Mendy Box RN NO S/S OF RESPIRATORY DISTRESS
--- NOTE | 2019-06-05 07:22 | NUR ---
OPENING NOTE Patient resting in the bed with eyes closed. No acute distress. Denied of pain. Skin warm and dry to touch. IV intact to right hand, no redness, no swelling, no drainage. On NS at 100ml/hr, infusing well. Safety measure maintained. Bed locked in low position, side rails up, bed alarm on. Call light within reached. Will continue to monitor.
[2019-06-05 07:55] VITALS: BP_SYST 150
--- NOTE | 2019-06-05 08:50 | NUR ---
SEEN AND EXAMINED BY DR[facility].
[2019-06-05] MEDS: QUEtiapine FUMARATE 25 MG TABLET PO SCH ×2 (09:12→17:30)
[2019-06-05] MEDS: ONDANSETRON HCL 4 MG/2 ML VIAL IVP PRN (09:12)
[2019-06-05] MEDS: DICYCLOMINE HCL 10 MG CAPSULE PO SCH ×2 (09:12→21:45)
[2019-06-05] MEDS: PANTOPRAZOLE SODIUM 40 MG/VIAL (PROTONIX) IVP SCH ×2 (09:12→21:44)
--- NOTE | 2019-06-05 09:54 | NUR ---
Discharge Planning: SLOT FLOOR PERSON has faxed pt's information to [facility] in [place] (p.[phone] f.[phone]).
--- NOTE | 2019-06-05 10:20 | NUR ---
IV INFILTRATED Noted IV site swollen, removed the IV but the patient refused to insert a new one. Will try later.
[2019-06-05 11:42] VITALS: BP_SYST 186
[2019-06-05] MEDS: INSULIN LISPRO SLIDING SCALE 100 UNITS/ML VIAL (humaLOG) SUBCUT PRN ×3 (12:01→21:54)
--- NOTE | 2019-06-05 12:04 | NUR ---
YY=106 Humalog insulin 2 units given per sliding scale as ordered. Patient no acute distress, resting in the bed. Safety measure maintained. Bed locked in low position, side rails up, bed alarm on. Call light within reached. Continue to monitor.
[2019-06-05 12:25] VITALS: BP_SYST 147
--- NOTE | 2019-06-05 13:10 | NUR ---
PATIENT STILL REFUSED TO INSERT A NEW IV. WILL TRY LATER.
--- NOTE | 2019-06-05 15:18 | NUR ---
SLEEPING Patient sleeping in the bed. No acute distress. Safety measure maintained. Call light within reached. Bed locked in low position, side rails up. Continue to monitor.
[2019-06-05 16:00] VITALS: BP_SYST 149
--- NOTE | 2019-06-05 16:16 | NUR ---
iv insertion new iv line started #22 on left hand. with good blood return. flushed well. no s/s of infiltration noted. pt tolerated well.
--- NOTE | 2019-06-05 18:10 | NUR ---
CAROLINE GHOTRA Seen and examined by Dr. Varner, reported to Dr. Jean the family wants to discharge to different facility. Talked to high school social studies teacher this morning and working on it. Will let him know where to accept the patient. Also ask Dr. Varner if possible change the PRN blood pressure medication from IV to PO because we have hard time to insert an IV due to the patient refusing. Dr. Varner stated the patient has psy problem.
--- NOTE | 2019-06-05 18:40 | NUR ---
CLOSING NOTE Patient resting in the bed. No acute distress. Denied of pain. Skin warm and dry to touch. IV intact to left hand, no redness, no swelling, no drainage. On NS at 100ml/hr, infusing well. All needs met. Safety measure maintained. Bed locked in low position, side rails up, bed alarm on. Call light within reached. Will endorse to night nurse.
[2019-06-05 19:30] VITALS: BP_SYST 145
--- NOTE | 2019-06-05 19:30 | NUR ---
INITIAL NOTES PATIENT IS LAYING IN BED AND STABLE. NO S/S OF RESPIRATORY DISTRESS NOTED. PATIENT UNSUCCESSFULLY DEMONSTRATES USAGE OF CALL LIGHT AT THIS TIME. WILL CONTINUE TO MONITOR FREQUENTLY. FALL, SAFETY, ASPIRATION, AND RESPIRATORY PRECAUTIONS WILL BE IN PLACE THROUGHOUT THE SHIFT. PATIENT VERBALIZES NO PAIN. BED IS LOCKED, ALARMED, AND AT THE LOWEST POSITION. WILL CONTINUE TO MONITOR.
--- NOTE | 2019-06-05 21:30 | NUR ---
PATIENT IS EATING DINNER AT THIS TIME. PATIENT IS STABLE. NO S/S OF RESPIRATORY DISTRESS. CALL LIGHT IN REACH. BED IS LOCKED, ALARMED, AND AT THE LOWEST POSITION. WILL CONTINUE TO MONITOR.
[2019-06-05] MEDS: QUEtiapine FUMARATE 100 MG TABLET PO SCH (21:45)
--- NOTE | 2019-06-05 23:30 | NUR ---
PATIENT WALKED TO THE RESTROOM AT THIS TIME. LINENS WERE CHANGED. PATIENT IS REPOSITION IN BED. PATIENT TOLERATED WELL. PATIENT IS STABLE. NO S/S OF RESPIRATORY DISTRESS NOTED. CALL LIGHT IN REACH. BED IS LOCKED, ALARMED, AND AT THE LOWEST POSITION. WILL CONTINUE TO MONITOR.
--- NOTE | 2019-06-06 | NUR ---
PATIENT PULLED OUT HER IV AT THIS TIME. NO S/S OF MAJOR BLEEDING. CLEANED AND COVERED WITH GAUZE. DESPITE EDUCATIONAL EFFORTS, PATIENT REFUSED IV PLACEMENT. PATIENT REQUESTED IN THE MORNING. WILL CONTINUE TO EDUCATE. PATIENT IS OTHERWISE STABLE. NO S/S OF RESPIRATORY DISTRESS NOTED. CALL LIGHT IN REACH. BED IS LOCKED, ALARMED, AND AT THE LOWEST POSITION. WILL CONTINUE TO MONITOR.
[2019-06-06 00:03] VITALS: BP_SYST 145
[2019-06-06] MEDS: NACL 0.9% 1,000 ML IV SCH ×2 (00:26→11:15)
--- NOTE | 2019-06-06 02:00 | NUR ---
PATIENT IS SLEEPING IN BED AND STABLE. NO S/S OF RESPIRATORY DISTRESS NOTED. CALL LIGHT IN REACH. BED IS LOCKED, ALARMED, AND AT THE LOWEST POSITION. WILL CONTINUE TO MONITOR.
--- NOTE | 2019-06-06 06:00 | NUR ---
NEW IV/CLOSING NOTES NEW IV PLACED ON LEFT ARM. PATENT AND INTACT. PATIENT IS STABLE. NO S/S OF RESPIRATORY DISTRESS NOTED. CALL LIGHT IN REACH. BED IS LOCKED, ALARMED, AND AT THE LOWEST POSITION. FALL, SAFETY, ASPIRATION, AND RESPIRATORY PRECAUTIONS HAS BEEN IN PLACE THROUGHOUT THE SHIFT. WILL CONTINUE TO MONITOR UNTIL REPORT IS GIVEN TO AM NURSE BY BEDSIDE.
--- NOTE | 2019-06-06 07:30 | NUR ---
INITIAL NOTE PT RESTING IN BED, NO ACUTE DISTRESS NOTED, BREATHING EVEN AND UNLABORED. IV SALINE LOCKED, PER SHELL PLATER PT REFUSED IVF. WILL REATTEMPT TO CONNECT TO IVF. CALL LIGHT WITHIN REACH, BED IN LOW AND LOCKED POSITION WITH BED ALARM ON.
--- NOTE | 2019-06-06 09:55 | NUR ---
RN ROUNDS MORNING MEDICATIONS ADMINISTERED. PT REFUSED TO BE CONNECTED TO IVF AT THIS TIME. PT ALLOWED FOR IVP PROTONIX TO BE ADMINISTERED. WILL REATTEMPT TO RECONNECT TO IVF.
[2019-06-06] MEDS: QUEtiapine FUMARATE 25 MG TABLET PO SCH (10:14)
[2019-06-06] MEDS: DICYCLOMINE HCL 10 MG CAPSULE PO SCH (10:14)
[2019-06-06] MEDS: PANTOPRAZOLE SODIUM 40 MG/VIAL (PROTONIX) IVP SCH (10:14)
--- NOTE | 2019-06-06 10:49 | NUR ---
Discharge Planning: DCP refaxed pt referral to [facility] (f [phone] p [phone]) Per [facility] she did not receive, DCP to follow up. Addendum: 06/06/19 at 1552 by Gay Benjamin DP [facility] (f [phone] p [phone]) 2nd fax# [phone] DCP faxed updated DC order with IV Rocephin, DCP called to confirm fax was received. DCP arranged transportation with [facility] ([phone]) 5:00pm P/U, nurse and CM aware DCP took patient packet to nurse station. Per Amador at [facility] (f [phone] p [phone]) Rm 4B
[2019-06-06] MEDS: INSULIN LISPRO SLIDING SCALE 100 UNITS/ML VIAL (humaLOG) SUBCUT PRN (11:17)
--- NOTE | 2019-06-06 11:30 | NUR ---
[facility] 251 EDUCATED PT ON USES AND SIDE EFFECTS OF LISPRO, INSULIN COVERAGE. 6 UNITS ADMINISTERED. PT TOLERATED WELL, WILL CONTINUE TO MONITOR.
[2019-06-06 12:33] VITALS: BP_SYST 145
--- NOTE | 2019-06-06 13:30 | NUR ---
RN ROUNDS PT RESTING IN BED, NO ACUTE DISTRESS NOTED, BREATHING EVEN AND UNLABORED. WILL CONTINUE TO MONITOR.
[2019-06-06 14:06] LABS: ANTI-SMOOTH MUSCLE AB 5 Units (0-19)
[2019-06-06] MEDS ORDERED: ROCPM1 IV (15:40)
--- NOTE | 2019-06-06 15:49 | NUR ---
DC PLANNING Earlier today received call from dtr Magaly to f/u that wanted pt to go to [facility]. Per chinyere Rashid systems requirements planner, accepted @ [facility] room 4B. Called & informed Dr Jean, gave telephone order for dc to SNF. Informed pt's nurse. Per Gay, ambulance set up for corn picker @ 5pm. Called & informed pt's dtboogie Mckenzie, ph [phone], agreeable w dc to [facility] today @ 5pm.
--- NOTE | 2019-06-06 15:53 | NUR ---
[facility] REPORT GIVEN TO FRANCESCA. PT WILL BE PICKED UP BY [facility] AT 5PM AND TAKEN TO ROOM 4B. Addendum: 06/06/19 at 1732 by Sonal Vaz RN MATIAS ALVARADO AWARE AND AGREEABLE.
[2019-06-06 17:20] VITALS: BP_SYST 139
--- NOTE | 2019-06-06 17:20 | NUR ---
DISCHARGE NOTE DISCHARGE PACKET AND INSTRUCTIONS GIVEN TO AMBULANCE. ALL BELONGINGS WITH PATIENT. IV SALINE LOCKED. ID HOSPITAL BAND REMOVED, AND PLAIN WHITE BAND PLACED ON PT. PT DENIES ANY PAIN OR DISCOMFORT. PT TAKEN VIA GURNEY ACCOMPANIED BY AMBULANCE STAFF. PT TO BE TAKEN TO [facility], ROOM 4B.
[2019-06-06 21:38] LABS: FERRITIN 214 ng/mL (15-150)
== END 2019-06-06 17:23 | DRG 690 ==
LOC: SED 13:17 → SMU 18:44
PROVIDERS: ADMIT Family Medicine; ATTEND Family Medicine
PROC: 0DB68ZX Excision of Stomach, Via Natural or Artificial Opening Endoscopic, Diagnostic (ICD-10-PCS; principal; 2019-05-30)
DX: N12 Tubulo-interstitial nephritis, not specified as acute or chronic (principal); F31.60 Bipolar disorder, current episode mixed, unspecified; N17.0 Acute kidney failure with tubular necrosis; K29.00 Acute gastritis without bleeding; E86.0 Dehydration; E11.22 Type 2 diabetes mellitus with diabetic chronic kidney disease; E78.5 Hyperlipidemia, unspecified; E87.6 Hypokalemia; F03.90 Unspecified dementia, unspecified severity, without behavioral disturbance, psychotic disturbance, mood disturbance, and anxiety; I12.9 Hypertensive chronic kidney disease with stage 1 through stage 4 chronic kidney disease, or unspecified chronic kidney disease; F20.9 Schizophrenia, unspecified; N18.9 Chronic kidney disease, unspecified; E11.65 Type 2 diabetes mellitus with hyperglycemia; Z88.0 Allergy status to penicillin; Z90.49 Acquired absence of other specified parts of digestive tract
CPT/HCPCS: 36415; 43239; 74021; 74181; 76700-TC; 80048; 80053; 80076; 81000-TC; 82728; 82962; 83516; 83690-TC; 85025; 86038; 86704; 86708; 86803; 87040-TC; 87081; 87086; 87340; 96365; 96375; 99285; C9113; J0360; J0696; J1885; J1956; J2060; J2175; J2250; J2270; J2405; J2765; J3480; J7030; J7050; J7060